=== PATIENT | female | born 1985 | race Caucasian/White ===

== ENCOUNTER 2017-03-25 13:32 | Emergency (ER) | payer BC ==
[~2017-03-25] VITALS: Ht 154.9 cm; Wt 76.2 kg
[~2017-03-25 13:32] MED LIST: ANAPROX DS550 MG PO; CLARITIN10 MG PO; COLACE50 MG PO; KEFLEX500 MG PO; LEXAPRO10 MG PO; MACROBID100 M1 PO; MOTRIN800 MG PO; PREDNICOT20 MG PO; TOBRADEX 0.1%-0.5 ML OPH; VICODIN 5/500 505 MG PO; VISTARIL25 M2 PO; ZITHROMAX Z PA250 MG PO; ZOFRAN ODT4 MG SL; ZOLOFT25 MG PO; Zofran4 MG PO
[2017-03-25] MEDS ORDERED: DONEPEZIL HCL10 MG PO (13:59)
[2017-03-25] MEDS ORDERED: ATIVAN0.5 MG PO (13:59)
[2017-03-25 14:25] LABS: BASO % 0.2 % (0.0-1.0); HEMATOCRIT 38.8 % (37.0-47.0); HEMOGLOBIN 13.4 g/dl (12.0-16.0); LYMPH # 1.1 10*3/uL (1.3-4.4); LYMPH % 12.1 % (27.0-41.0); MEAN CELL VOLUME 90.2 fl (81.0-99.0); MEAN CORPUSCULAR HGB 31.2 pg (27.0-31.0); MEAN CORPUSCULAR HGB CONC 34.5 g/dl (33.0-37.0); MEAN PLATELET VOLUME 10.1 fl (9.6-12.3); MONO # 0.3 10*3/uL (0.1-1.0); MONO % 3.3 % (3.0-9.0); NEUT # 7.4 10*3/uL (2.3-7.9); NEUT % 84.1 % (47.0-73.0); PLATELET COUNT AUTOMATED 306 10*3/uL (130-400); WHITE BLOOD COUNT 8.8 10*3/uL (4.8-10.8)
[2017-03-25 14:53] LABS: ALKALINE PHOSPHATASE 66 U/L (45-117); BUN 9 mg/dl (7-24); CHLORIDE 110 mmol/L (98-107); CREATININE 0.94 mg/dL (0.55-1.02); LIPASE 150 U/L (73-393); POTASSIUM 3.8 mmol/L (3.5-5.1); SGOT/AST 20 IU/L (3-35); SGPT/ALT 23 U/L (12-78); SODIUM 145 mmol/L (136-145); TOTAL PROTEIN 8.7 gm/dL (6.4-8.2)
[2017-03-25] MEDS ORDERED: ZOFRAN ODT4 MG SL (15:16)
== END 2017-03-25 15:21 | disposition home or self-care (01) ==
LOC: ED 13:32
PROVIDERS: Emergency Medicine
DX: K52.9 Noninfective gastroenteritis and colitis, unspecified (principal); F32.9 Major depressive disorder, single episode, unspecified; F10.10 Alcohol abuse, uncomplicated; Z91.040 Latex allergy status; Z88.1 Allergy status to other antibiotic agents; Z88.5 Allergy status to narcotic agent; Z79.899 Other long term (current) drug therapy

== ENCOUNTER 2017-12-19 08:45 | Emergency (ER) | payer BC ==
[~2017-12-19] VITALS: Ht 157.4 cm; Wt 78.9 kg
--- NOTE | ~2017-12-19 | EKG ---
[place], [place] ELECTROCARDIOGRAM REPORT NAME: PERLA BLACKMON UNIT #: [id number] ROOM: DOCTOR: EPIPHANY DRAFT REPORT BIRTHDATE: [birth year] [facility] Test Date: 2017-12-19 Test Time: 09:18:56 Pat Name: PERLA BLACKMON Department: Room: Gender: [place] [employer] [place] Observer: : 1985 Requested By: AMADA ARCINIEGA Order Number: [id number] Reading MD: Ynes Galvan MD Measurements Intervals [place] Rate: 69 P: 42 MT: 167 QRS: 44 QRSD: 90 T: 30 QT: 412 QTc: 442 Interpretive Statements Sinus rhythm Normal ECG Electronically Signed On 12-20-2017 14:34:37 PST by Ynes Galvan MD CM:EKGRPT:ELECTROCARDIOGRAM REPORT [id number] AMADA ARCINIEGA EPIPHANY DRAFT REPORT AMADA ARCINIEGA
[~2017-12-19 08:45] MED LIST changes: +ATIVAN0.5 MG PO; +DONEPEZIL HCL10 MG PO
[2017-12-19 09:34] LABS: BASO % 0.3 % (0.0-1.0); EOS # 0.1 10*3/uL (0.0-0.4); EOS % 1.5 % (1.0-4.0); HEMATOCRIT 38.1 % (37.0-47.0); LYMPH # 3.1 10*3/uL (1.3-4.4); LYMPH % 32.2 % (27.0-41.0); MEAN CORPUSCULAR HGB 31.4 pg (27.0-31.0); MEAN CORPUSCULAR HGB CONC 34.1 g/dl (33.0-37.0); MEAN PLATELET VOLUME 10.3 fl (9.6-12.3); MONO # 0.8 10*3/uL (0.1-1.0); MONO % 8.1 % (3.0-9.0); NEUT # 5.5 10*3/uL (2.3-7.9); NEUT % 57.6 % (47.0-73.0); PLATELET COUNT AUTOMATED 287 10*3/uL (130-400); RED BLOOD COUNT 4.14 10*6/uL (4.10-5.10); RED CELL DISTRI WIDTH 11.7 % (0-14.5); WHITE BLOOD COUNT 9.6 10*3/uL (4.8-10.8)
[2017-12-19 09:50] LABS: ALBUMIN 4.2 gm/dl (3.1-4.5); ALKALINE PHOSPHATASE 64 U/L (45-117); BUN 11 mg/dl (7-24); CHLORIDE 105 mmol/L (98-107); CREATININE 0.76 mg/dL (0.55-1.02); POTASSIUM 3.7 mmol/L (3.5-5.1); SGOT/AST 16 IU/L (3-35); SGPT/ALT 21 U/L (12-78); SODIUM 137 mmol/L (136-145); TOTAL PROTEIN 8.4 gm/dL (6.4-8.2)
[2017-12-19 09:51] LABS: TROPONIN I < 0.015 ng/ml (<0.045)
[2017-12-19 10:48] LABS: BILIRUBIN NEGATIVE (NEGATIVE); BLOOD 2+ (NEGATIVE); CLARITY CLEAR (CLEAR); COLOR YELLOW (YELLOW); GLUCOSE NEGATIVE (NEGATIVE); KETONE NEGATIVE (NEGATIVE); LEUKO ESTERASE NEGATIVE (NEGATIVE); NITRITE NEGATIVE (NEGATIVE); UROBILINOGEN 0.2 E.U./dl (0.2-1.0)
[2017-12-19 11:13] LABS: BACTERIA 2+; WBC 0-2 wbc/hpf (0-5)
== END 2017-12-19 12:57 | disposition home or self-care (01) ==
LOC: ED 08:45
PROVIDERS: Nurse Practitioner Family
DX: R51 Headache (principal); R10.13 Epigastric pain; Z91.040 Latex allergy status; Z88.1 Allergy status to other antibiotic agents; Z88.8 Allergy status to other drugs, medicaments and biological substances; Z79.899 Other long term (current) drug therapy

== ENCOUNTER 2018-09-12 19:43 | Emergency (ER) | payer BC ==
[~2018-09-12] VITALS: Ht 157.4 cm; Wt 70.3 kg
== END 2018-09-12 22:11 | disposition home or self-care (01) ==
LOC: ED 19:43
DX: S91.202A Unspecified open wound of left great toe with damage to nail, initial encounter (principal); Z88.1 Allergy status to other antibiotic agents; Z88.8 Allergy status to other drugs, medicaments and biological substances; Z91.040 Latex allergy status; Z79.899 Other long term (current) drug therapy; W21.89XA Striking against or struck by other sports equipment, initial encounter; Y93.44 Activity, trampolining; Y92.89 Other specified places as the place of occurrence of the external cause; Y99.8 Other external cause status